=== PATIENT | female | born 1965 | race Caucasian/White ===

== ENCOUNTER → 2024-02-12 | Emergency (ER) | payer OTHER ==
[~2024-02-12] MED LIST: TDAP (DIPHTH,PERTUSS(ACELL),TET VAC) 0.5 ML VIAL IMVAC ONE
--- OUTSIDE RECORDS SUMMARY | 2024-02-12 19:07 | XMS REPORT | Continuity of Care Document ---
Author Name Unknown Address [address] [place], [place] [address]onnect Address [address] [place] [address] [address] [place] [address] Care Team Providers Care Rate Quoting Operator Name Role Phone ROSALIE Attending Clinician Unavailable ROSALIE Admitting Clinician Unavailable Encounters Start Date/Time End Date/Time Encounter Type Admission Type Attending Clinicians Care Facility Care Department Encounter ID Source 2022-06-04 05:24:00 2022-06-04 05:24:00 Outpatient [facility] [id number]eto [facility] Program
--- NOTE | 2024-02-12 21:51 | ER ---
Nurse's Notes [facility] Name: Jaquelin Jenkins Age: 58 yrs Sex: Female : 1965 Arrival Date: 02/12/2024 Time: 19:03 Bed 10 Private MD: Max Kelly Diagnosis: Pain in right wrist;Laceration without foreign body of other part of head, initial encounter;Contusion of unspecified part of head, initial encounter;Fall on same level from slipping, tripping and stumbling with subsequent striking against object Presentation: 02/11 19:36 Chief complaint: Patient states: around 1830 fell while moving a trash can on her km8 gravel driveway; pt noted to have laceration to right side of face, bruising to right gnosticist, right knuckles, and nose; pt also reports pain to right wrist; denies LOC. Coronavirus screen: Client denies travel out of the [place] in the last 14 days. Ebola Screen: No symptoms or risks identified at this time. Initial Sepsis Screen: Does the patient meet any 2 criteria? No. Patient's initial sepsis screen is negative. Does the patient have a suspected source of infection? No. Patient's initial sepsis screen is negative. Risk Assessment: Do you want to hurt yourself or someone else? Patient reports no desire to harm self or others. Onset of symptoms was February 12, 2024 at 18:30. 19:36 Method Of Arrival: Ambulatory km8 19:36 Acuity: JANNETH 3 km8 19:41 Care prior to arrival: None. Mechanism of Injury: Fall from standing position. km8 Triage Assessment: 19:38 General: Appears in no apparent distress. uncomfortable, Behavior is calm, cooperative, km8 appropriate for age. Pain: Complains of pain in right cheek, right gnosticist, right wrist and nose Pain currently is 8 out of 10 on a pain scale. EENT: bruising to nose and laceration face. Neuro: Level of Consciousness is awake, alert, obeys commands, Oriented to person, place, time, situation. Cardiovascular: Denies chest pain, shortness of breath, Patient's skin is warm and dry. Respiratory: Airway is patent Respiratory effort is even, unlabored, Respiratory pattern is regular, symmetrical. GI: No signs and/or symptoms were reported involving the gastrointestinal system. : No signs and/or symptoms were reported regarding the genitourinary system. Derm: Skin is healthy with good turgor, Skin is dry, Skin is normal, Skin temperature is warm Wound noted right cheek Wound is laceration. Musculoskeletal: Range of motion: intact in all extremities, Reports pain in right wrist. Historical: - Allergies: 19:38 Latex, Natural Rubber; 19:38 Neosporin ([id number]); - Home Meds: 19:38 None [Active]; - PMHx: 19:38 None; - PSHx: 19:38 bilateral hip replacement; - Immunization history:: Client reports having NOT received the Covid vaccine. Last tetanus immunization: > 10 years ago Flu vaccine is not up to date. - Social history:: Smoking status: Patient denies any tobacco usage or history of. Patient uses alcohol, on a daily basis. admits to "couple of beers" a day. Patient/guardian denies using street drugs. Screenin:39 [facility] ED Fall Risk Assessment (Adult) History of falling in the last 3 months, kd3 including since admission No falls in past 3 months (0 pts) Confusion or Disorientation No (0 pts) Intoxicated or Sedated No (0 pts) Impaired Gait No (0 pts) Mobility Assist Device Used No (0 pt) Altered Elimination No (0 pt) Score/Fall Risk Level 0 - 2 = Low Risk Oriented to surroundings. Abuse screen: Denies threats or abuse. Denies injuries from another. Nutritional screening: No deficits noted. Tuberculosis screening: No symptoms or risk factors identified. Assessment: 21:38 General: Pt's lac washed with chlorhexidine wash and iodine. Pt holding pressure on kd3 lac. . Neuro: Level of Consciousness is awake, alert, obeys commands, Oriented to person, place, time, situation. Respiratory: Airway is patent Trachea midline Respiratory effort is even, unlabored, Respiratory pattern is regular, symmetrical. Vital Signs: 19:36 BP 119 / 94; Pulse 78; Resp 16; Temp 98.5(O); Pulse Ox 100% on R/A; Weight 52.16 kg km8 (R); Height 5 ft. 4 in. (R); Pain 8/10; 21:56 BP 108 / 79; Pulse 88; Resp 19; Pulse Ox 99% on R/A; kd3 19:36 Body Mass Index 19.74 (52.16 kg, 162.56 cm) km8 19:36 Pain Scale: Adult km8 Dairy Coma Score: 19:41 Eye Response: spontaneous(4). Motor Response: obeys commands(6). Verbal Response: km8 oriented(5). Total: 15. ED Course: 19:08 Patient arrived in ED. mr 19:10 Max Kelly is Private Physician. mr 19:38 Triage completed. km8 19:38 Arm band placed on right wrist. km8 19:41 Patient maintains SpO2 saturation greater than 95% on room air. km8 19:44 Jaron Negron PA is PHCP. cp 19:44 Jaron Parker MD is Attending Physician. yola 21:26 Garima Brown, BRIDGETTE is Primary Nurse. kd3 21:56 Patient has correct armband on for positive identification. Provided Education on: kd3 laceration care . 21:56 Assist provider with laceration repair on face. Patient did not have IV access during kd3 this emergency room visit. Administered Medications: 21:38 CANCELLED (Physician Discretion): tetanus toxoid,adsorbed0.5 ml IM once; Provide cp Vaccine Information Statement (VIS). 21:40 Drug: Boostrix Tdap IM 0.5 ml IM once; as a single dose Route: IM; Site: left deltoid; kd3 21:57 Follow up: Response: No adverse reaction kd3 Medication: 21:39 Vaccine Information Statement (VIS) provided today. Questions and/or concerns kd3 addressed. VIS edition date: June 29, 2021. Outcome: 21:50 Discharge ordered by . cp 21:56 Discharged to home ambulatory, kd3 21:56 Condition: stable 21:56 Discharge instructions given to patient, family, Instructed on discharge instructions, follow up and referral plans. Demonstrated understanding of instructions, follow-up care, 21:57 Patient left the ED. kd3 Signatures: Yenny Schmitz, Reg Reg mr Jaron Negron PA PA cp Doucette, Kyli, RN RN kd3 Betsey Hutchins RN RN km8
--- NOTE | 2024-02-12 21:51 | EDPHYS ---
Physician Documentation [facility] Name: Jaquelin Jenkins Age: 58 yrs Sex: Female : 1965 Arrival Date: 02/12/2024 Time: 19:03 Bed 10 Private MD: Max Kelly ED Physician Jaron Parker HPI: 02/11 21:10 This 58 yrs old Female presents to ER via Ambulatory with complaints of Fall Injury, cp Laceration To Scalp/Face. 21:10 Details of fall: The patient fell from an upright position, while walking, and struck a cp concrete surface, plastic trash container. Onset: The symptoms/episode began/occurred just prior to arrival. Associated injuries: The patient sustained injury to the head, contusion, laceration, of the right cheek, pain, right wrist. Patient denies LOC. Reports fall into trash container and then onto ground this evening injuring face and right wrist. Patient refusing any xray imaging at this time. Historical: - Allergies: 19:38 Latex, Natural Rubber; km 19:38 Neosporin ([id number]); km8 - Home Meds: 19:38 None [Active]; 8 - PMHx: 19:38 None; 8 - PSHx: 19:38 bilateral hip replacement; km8 - Immunization history:: Client reports having NOT received the Covid vaccine. Last tetanus immunization: > 10 years ago Flu vaccine is not up to date. - Social history:: Smoking status: Patient denies any tobacco usage or history of. Patient uses alcohol, on a daily basis. admits to "couple of beers" a day. Patient/guardian denies using street drugs. ROS: 21:15 Constitutional: Negative for body aches, chills, fever, poor PO intake, cp 21:15 Cardiovascular: Negative for chest pain, 21:15 Respiratory: Negative for cough, shortness of breath, wheezing, 21:15 Abdomen/GI: Negative for abdominal pain, vomiting, diarrhea, constipation, 21:15 MS/extremity: Positive for ecchymosis, pain, swelling, tenderness, of the right wrist, Negative for decreased range of motion, deformity, 21:15 Neuro: Negative for altered mental status, loss of consciousness, weakness, 21:15 All other systems are negative, Exam: 21:20 Constitutional: The patient appears in no acute distress, alert, awake, cp non-diaphoretic, non-toxic, well developed, well nourished, 21:20 Head/face: Noted is ecchymosis, of the right cheek, a laceration(s), that is cp superficial, that is linear, of the right cheek, swelling, that is mild, of the right cheek, tenderness, mild swelling and tenderness of nose. 21:20 Eyes: Pupils: equal, round, and reactive to light and accomodation, Extraocular movements: intact throughout, Conjunctiva: normal, no exudate, no injection, Lids and lashes: appear normal, bilaterally, 21:20 ENT: External ear(s): are unremarkable, Nose: External nose: swelling is noted, Nasal septum: is midline, no septal hematoma appreciated, bleeding, is not appreciated, Mouth: Lips: moist, Oral mucosa: moist, Posterior pharynx: Airway: no evidence of obstruction, patent, Dental exam: no acute changes, Voice: is normal, 21:20 Neck: C-spine: vertebral tenderness, is not appreciated, crepitus, is not appreciated, ROM/movement: pain, that is mild, with any movement, limited range of motion, is not appreciated, nuchal rigidity, is not appreciated, 21:20 Chest/axilla: Inspection: normal, Palpation: crepitus, is not appreciated, tenderness, is not appreciated, 21:20 Cardiovascular: Rate: normal, Rhythm: regular, 21:20 Respiratory: the patient does not display signs of respiratory distress, Respirations: normal, no use of accessory muscles, no retractions, labored breathing, is not present, Breath sounds: are clear throughout, no decreased breath sounds, no stridor, no wheezing, 21:20 Abdomen/GI: Exam negative for discomfort, distension, guarding, Inspection: abdomen appears normal, 21:20 Back: pain, is absent, ROM is normal, 21:20 Musculoskeletal/extremity: Joints: the right wrist displays tenderness, mild swelling and mild bruising. no obvious deformity and no decreased AROM, 21:20 Neuro: Orientation: to person, place \\T\\ time. Mentation: is normal, Cerebellar function: is grossly normal, Motor: moves all fours, strength is normal, Gait: is steady, at a normal pace, without difficulty, Vital Signs: 19:36 BP 119 / 94; Pulse 78; Resp 16; Temp 98.5(O); Pulse Ox 100% on R/A; Weight 52.16 kg km8 (R); Height 5 ft. 4 in. (R); Pain 8/10; 21:56 BP 108 / 79; Pulse 88; Resp 19; Pulse Ox 99% on R/A; kd3 19:36 Body Mass Index 19.74 (52.16 kg, 162.56 cm) [facility] 19:36 Pain Scale: Adult km8 Raiza Coma Score: 19:41 Eye Response: spontaneous(4). Motor Response: obeys commands(6). Verbal Response: km8 oriented(5). Total: 15. Laceration: 22:00 Wound Repair of 3.5cm ( 1.4in ) partial thickness laceration to right facial cheek cp below eye. Linear shaped.. Distal neuro/vascular/tendon intact. Wound prep: Simple cleansing by me. Skin closed with thin layer Adhesive skin closure using Dermabond. Patient tolerated well. MDM: 19:44 Patient medically screened. cp 21:50 Data reviewed: vital signs, nurses notes, and as a result, I will discharge patient. cp 21:50 Differential diagnosis: closed head injury, contusion, fracture, multiple trauma. cp Counseling: I had a detailed discussion with the patient and/or guardian regarding the historical points, exam findings, and any diagnostic results supporting the discharge/admit diagnosis, to return to the emergency department if symptoms worsen or persist or if there are any questions or concerns that arise at home. Response to treatment: the patient's symptoms have mildly improved after treatment. Refusal of service: The patient/guardian displays adequate decision making capability and despite a detailed discussion of alternatives, benefits, risks, and consequences refuses: any radiology imaging to include CT and xrays. Special discussion: Based on the patient's history, exam and DX evaluation, there is no indication for emergent intervention or inpatient TX. It is understood by the patient/guardian that if the SXs persist or worsen they need to return immediately for re-evaluation. 02/11 21:07 Order name: Dermabond; Complete Time: 21:37 cp 02/11 21:26 Order name: Wound Care; Complete Time: 21:37 cp Administered Medications: 21:38 CANCELLED (Physician Discretion): tetanus toxoid,adsorbed0.5 ml IM once; Provide cp Vaccine Information Statement (VIS). 21:40 Drug: Boostrix Tdap IM 0.5 ml IM once; as a single dose Route: IM; Site: left deltoid; kd3 21:57 Follow up: Response: No adverse reaction kd3 Disposition Summary: 02/12/24 21:50 Discharge Ordered Notes: Location: Home cp Problem: new cp Symptoms: have improved cp Condition: Stable cp Diagnosis - Pain in right wrist cp - Laceration without foreign body of other part of head, initial encounter cp - Contusion of unspecified part of head, initial encounter cp - Fall on same level from slipping, tripping and stumbling with subsequent striking cp against object Followup: cp - With: Private Physician - When: 1 - 2 days - Reason: Recheck today's complaints Discharge Instructions: - Discharge Summary Sheet cp - Facial or Scalp Contusion cp - Head Injury, Adult cp - Facial Laceration cp - Wrist Pain, Adult cp Forms: - Medication Reconciliation Form cp - Thank You Letter cp - Antibiotic Education cp - Prescription Opioid Use cp - Patient Portal Instructions cp - Leadership Thank You Letter cp Signatures: Dispatcher [employer] EDMS Jaron Negron PA PA cp Garima Brown, RN RN kd3 Betsey Hutchins RN RN km8 Corrections: (The following items were deleted from the chart) 21:38 21:26 Tetanus Toxoid,Adsorbed IM 0.5 ml IM once; Provide Vaccine Information Statement cp (VIS). ordered. cp 21:51 21:08 Wrist Right 3 View+[id number] ordered. EDMS EDMS
[2024-02-12 23:03] VITALS: BP 119/94; O2SAT 100
[2024-02-12 23:04] VITALS: TEMP 98.5
== END ==
LOC: ER 19:03
PROC: 0HQ1XZZ Repair Face Skin, External Approach (ICD-10-PCS; principal; 2024-02-12)
DX: S01.81XA Laceration without foreign body of other part of head, initial encounter (principal); M25.531 Pain in right wrist; W01.10XA Fall on same level from slipping, tripping and stumbling with subsequent striking against unspecified object, initial encounter; Z96.653 Presence of artificial knee joint, bilateral; Z88.3 Allergy status to other anti-infective agents; Z91.040 Latex allergy status; Z91.048 Other nonmedicinal substance allergy status
CPT/HCPCS: 96372; 99284